=== PATIENT | female | born 1965 | race Caucasian/White ===

== ENCOUNTER → 2018-02-06 | Outpatient (CLI) | payer OTHER ==
--- NOTE | 2018-02-07 14:35 | MM ---
Reason for exam: screening (asymptomatic). History: Patient is postmenopausal and is nulliparous. Physical Findings: A clinical breast exam by your physician is recommended on an annual basis and results should be correlated with mammographic findings. MG Screening Mammo w CAD Bilateral CC and MLO view(s) were taken. No prior studies available for comparison. There are scattered fibroglandular densities. No significant changes when compared with prior studies. ASSESSMENT: Negative, BI-RAD 1 RECOMMENDATION: Routine screening mammogram of both breasts in 1 year.
== END | disposition home or self-care (01) ==
LOC: RADMAMWWP 09:26
PROVIDERS: ATTEND Family Medicine
DX: Z12.31 Encounter for screening mammogram for malignant neoplasm of breast (principal)
CPT/HCPCS: 77067

== ENCOUNTER → 2020-05-15 | Outpatient (CLI) | payer OTHER ==
--- NOTE | 2020-05-15 13:37 | CT ---
EXAMINATION TYPE: CT abdomen pelvis wo con DATE OF EXAM: 05/15/2020 COMPARISON: None HISTORY: 55-year-old year-old female Elevated liver function enzymes, jaundice CT DLP: 724 mGycm. Automated exposure control for dose reduction was used. TECHNIQUE: Contiguous axial scanning of the abdomen and pelvis without IV contrast. Coronal and sagit wanda reconstructions performed. FINDINGS: Heart normal size without pericardial effusion. Suspect old healed fracture of the right lower latera l rib. Lung bases clear without pleural effusion. Lack of IV contrast limits assessment of the solid abdominal viscera, lymph nodes, and vascular struc tures. The liver itself is normal size at 14.9 cm without any obvious focal lesion. Allowing for the limited noncontrast technique, no obvious biliary ductal dilatation. Noncontrast appearance of the gallbladder, right adrenal gland, kidneys, spleen, and pancreas show no gross abnormal value. There seems to be low-density nodular thickening of the left adrenal gland measuring up to 1.6 cm. A 1 year follow-up is recommended for stability. No dilated small bowel, free fluid, or free air. No mesenteric or retroperitoneal lymphadenopathy. While the appendix shows mild wall thickening, there is no surrounding inflammation or abnormal dilat ation. Small amount of contrast material extends throughout the lumen of the appendix. Suspect some n ormal variation. There is a nodular fold thickening along the cecum and ascending colon. Additional focal nodular thickening measuring 2.0 cm along the proximal sigmoid colon, axial image 69 . There is mid sigmoid diverticulosis without pericolonic inflammatory change. Mild circumferential bladder wall thickening. Uterus is anteverted. Bilateral ovaries are seen. No ab normal fluid collection in the pelvis or pelvic lymphadenopathy. Bones: Mild disc bulging and multiple levels of the lumbar spine. IMPRESSION: 1. Suspect some anatomic variation in the appendix given mild wall thickening. There is no surroundi ng inflammation or abnormal dilatation to support acute appendicitis. 2. Nodular fold thickening within the cecum and ascending colon could represent a nonspecific mild c olitis. There is also focal 2 cm nodularity along the proximal sigmoid colon that could reflect simil ar changes. Recommend direct visualization to exclude underlying neoplasm especially here at the prox imal sigmoid colon. 3. 1.6 cm low-density nodular thickening of the left adrenal gland. There may be an underlying adren al adenoma. Follow-up CT in 12 months to reassess. 4. Sigmoid diverticulosis without acute diverticulitis. 5. Mild circumferential bladder wall thickening may be chronic for this patient. Correlate to exclud e cystitis.
== END ==
LOC: RADCTMAIN 09:52
PROVIDERS: ATTEND Family Medicine
DX: R94.5 Abnormal results of liver function studies (principal); R17 Unspecified jaundice
CPT/HCPCS: 74176; Q9967

== ENCOUNTER 2020-06-11 09:22 | Day surgery (SDC) | payer OTHER ==
[2020-06-05 16:35] VITALS: BMI 25.7
[~2020-06-11 09:22] MED LIST: LACTATED RINGERS 1,000 ML IV SCH
[2020-06-11 10:19] VITALS: RESP 16; TEMP 97.9
[2020-06-11] MEDS ORDERED: LIDOCAINE 1% (10MG/ML) FOR IV START INTRADERMA ONE (10:19)
[2020-06-11] MEDS ORDERED: PROPOFOL 10 MG/ML 20 ML VIAL IV ONE (10:54)
--- NOTE | 2020-06-11 11:09 | P.PCN ---
Date of Procedure: 06/11/20 Procedure(s) Performed: BRIEF HISTORY: Patient is a 55-year-old pleasant white female scheduled for an elective colonoscopy as a part of evaluation of abnormal CAT scan that showed thickening of the right colon and sigmoid colon. PROCEDURE PERFORMED: Colonoscopy. PREOPERATIVE DIAGNOSIS: Abnormal CAT scan showing thickening of the right colon. IV sedation per Anesthesia. PROCEDURE: After informed consent was obtained, the patient, was brought into the endoscopy unit. IV sedation was administered by Anesthesia under continuous monitoring. Digital rectal examination was normal. small external hemorrhoid noted. Initially the Olympus CF-160 flexible video colonoscope was then inserted in the rectum, gradually advanced into the cecum without any difficulty. Careful examination was performed as the scope was gradually being withdrawn. Ileocecal valve and the appendiceal orifice were visualized and appeared normal. Prep was excellent. Mucosa of the cecum, ascending colon, transverse colon, descending colon, sigmoid colon, and rectum appeared normal. scattered sigmoid diverticulosis seen. Retroflexion was performed in the rectum and no lesions were seen. The patient tolerated the procedure well. IMPRESSION: Normal-appearing colon from rectum to cecum with no evidence of colitis or colorectal neoplasia . scattered sigmoid diverticulosis Small external hemorrhoids. RECOMMENDATIONS: Findings of this examination were discussed with the patient as well as a family. She was advised to have a repeat screening colonoscopy in 10 years.
[2020-06-11 11:31] VITALS: BP 148/86; PULSE 74
== END 2020-06-11 11:52 | disposition home or self-care (01) ==
LOC: ORWHC2ENDO 09:22
PROVIDERS: ATTEND Internal Medicine Gastroenterology
DX: R93.3 Abnormal findings on diagnostic imaging of other parts of digestive tract (principal); K64.4 Residual hemorrhoidal skin tags; K57.30 Diverticulosis of large intestine without perforation or abscess without bleeding; I10 Essential (primary) hypertension; E03.9 Hypothyroidism, unspecified; E78.5 Hyperlipidemia, unspecified; Z79.890 Hormone replacement therapy; Z79.899 Other long term (current) drug therapy
CPT/HCPCS: J2704; G0121; 45378

== ENCOUNTER → 2023-03-21 | Outpatient (CLI) | payer OTHER ==
--- NOTE | 2023-03-21 17:39 | MM ---
Reason for Exam: Screening (asymptomatic). Last mammogram was performed 5 year(s) and 2 month(s) ago. Patient History: Menarche at age 15. Patient has no children. Postmenopausal. Risk Values: Laurie 5 year model risk: 1.4%. NCI Lifetime model risk: 8.9%. Prior Study Comparison: 02/06/2018 Bilateral Screening Mammogram, [facility]. Tissue Density: The breast tissue is heterogeneously dense. This may lower the sensitivity of mammography. Findings: Analyzed By CAD. Chronic nodularity on the left. There is no suspicious group of microcalcifications or new suspicious mass in either breast. Overall Assessment: Benign, BI-RAD 2 Management: Screening Mammogram of both breasts in 1 year. . Patient should continue monthly self-breast exams. A clinical breast exam by your physician is recommended on an annual basis. This exam should not preclude additional follow-up of suspicious palpable abnormalities. Note on Laurie scores and lifetime risk: 1. A Laurie score greater than 3% is considered moderate risk. If this is the case, consider specialist referral to assess eligibility for a risk reducing agent. 2. If overall lifetime risk for the development of breast cancer is 20% or higher, the patient may qualify for future screening with alternating mammogram and breast MRI. Electronically signed and approved by: Samuel Nguyen M.D. Radiologist
--- NOTE | 2023-03-23 20:18 | BD ---
EXAMINATION TYPE: Axial Bone Density DATE OF EXAM: 03/21/2023 CLINICAL HISTORY: 58 years old Female. ICD-10 CODE: N95.1 MENOPAUSAL AND FEMALE CLIMA Height: 62.5in Weight: 208lb FRAX RISK QUESTIONS: Secondary Osteoporosis: RISK FACTORS HISTORY OF: Active: yes Postmenopausal woman: yes MEDICATIONS: Thyroid Medications: Which medication: Levothyroxine How Lon years Additional Medications: vitamin d Additional History: EXAM MEASUREMENTS: Bone mineral densitometry was performed using the [employer]. Bone mineral density as measured about the Lumbar spine is: ----- L1-L4(G/cm2): 1.131 T Score Values are as follows: ----- L1: -0.4 ----- L2: -0.3 ----- L3: 0.0 ----- L4: -1.0 ----- L1-L4: -0.4 Z Score Values are as follows: ----- L1: -0.5 ----- L2: -0.4 ----- L3: -0.1 ----- L4: -1.1 ----- L1-L4: -0.5 First dexa at [facility] Bone mineral density about the R hip (g/cm2): 0.987 Bone mineral density about the L hip (g/cm2): 1.009 T Score values are as follows: -----R Neck: -1.4 -----L Neck: -1.3 -----R Total: -0.2 -----L Total: 0.0 Z Score values are as follows: -----R Neck: -1.0 -----L Neck: -0.9 -----R Total: -0.2 -----L Total: 0.0 FRAX%s: The graph provided illustrates a 6.2% chance for a major osteoporotic fx and a 0.4% chance fo r the hips probability for fx in 10 years time. IMPRESSION: Normal (Values between +1 and -1 indicate normal bone mass). Consider repeating this study in 5 year s or sooner if there is some new clinical indication. NOTE: T-SCORE=SD OF THE YOUNG ADULT MEAN.
== END | disposition home or self-care (01) ==
LOC: RADBDWWP 10:20
PROVIDERS: ATTEND Family Medicine
DX: Z12.31 Encounter for screening mammogram for malignant neoplasm of breast (principal); M85.89 Other specified disorders of bone density and structure, multiple sites; Z78.0 Asymptomatic menopausal state
CPT/HCPCS: 77067; 77080